=== PATIENT | male | born 1935 | race Caucasian/White ===

== ENCOUNTER 2023-06-14 17:01 | Inpatient (IN) ==
[2023-06-14] MEDS ORDERED: IOPAMIDOL 100 ML BOTTLE IV ONE (17:02)
[2023-06-14 17:44] LABS: Basophils # (Auto) 0.04 K/mcL (0.00-0.30); Basophils % (Auto) 0.4 % (0.0-2.0); Eosinophils # (Auto) 0.31 K/mcL (0.00-0.70); Eosinophils % (Auto) 3.1 % (0.0-7.0); Hematocrit 42.6 % (40.1-51.0); Lymphocytes # (Auto) 2.59 K/mcL (1.50-4.80); Lymphocytes % (Auto) 25.5 % (15.5-49.0); Mean Cell Volume 91.6 fL (80.0-100.0); Mean Corpuscular HGB Conc 30.5 g/dL (31.0-36.0); Mean Platelet Volume 8.9 fL (8.8-12.5); Monocytes # (Auto) 0.83 K/mcL (0.10-0.90); Monocytes % (Auto) 8.2 % (1.0-12.0); Neutrophils % (Auto) 62.6 % (38.0-78.0); Platelet Count 347 K/mcL (140-440); RBC 4.65 M/mcL (4.63-6.08); Red Cell Distribution Width 15.5 % (11.5-14.5); WBC 10.2 K/mcL (4.5-11.0)
[2023-06-14 18:12] LABS: ALT/SGPT 5 U/L (<40); AST/SGOT 20 U/L (<40); Albumin 3.8 gm/dL (3.2-5.2); Albumin/Globulin Ratio 1.2 (1.0-2.3); Alkaline Phosphatase 130 U/L (39-117); Bilirubin,Total 2.3 mg/dL (0.1-1.0); Blood Urea Nitrogen 29 mg/dL (8-23); Calcium 9.7 mg/dL (8.6-10.4); Carbon Dioxide 23 mmol/L (22-30); Chloride 102 mmol/L (96-108); Globulin 3.1 gm/dL (2.2-3.7); Glomerular Filtration Rate 44; Glucose 106 mg/dL (70-105)
[2023-06-14 18:32] LABS: INR 1.1 (0.9-1.1); Prothrombin Time 15.1 sec (11.9-14.5)
[2023-06-14] MEDS: FUROSEMIDE 40 MG/4 ML VIAL IV ONE (19:18)
[2023-06-14] MEDS ORDERED: POTASSIUM CHLORIDE 20 MEQ TABLET PO PRN ×2 (22:12)
[2023-06-14] MEDS ORDERED: IPRATROPIUM/ALBUTEROL 3 ML AMPUL.NEB NEB PRN (22:12)
[2023-06-14] MEDS ORDERED: ONDANSETRON 4 MG/2 ML VIAL IV PRN (22:12)
[2023-06-14] MEDS ORDERED: hydrALAZINE 20 MG/ML VIAL IV PRN (22:12)
[2023-06-14] MEDS ORDERED: POLYETHYLENE GLYCOL 3350 17 GM PACKET PO PRN (22:12)
[2023-06-14] MEDS ORDERED: METOPROLOL TARTRATE 5 MG/5 ML VIAL IV PRN (22:12)
[2023-06-14] MEDS ORDERED: SENNOSIDES 1 TABLET PO PRN (22:12)
[2023-06-14] MEDS ORDERED: MAGNESIUM SULFATE 2 GM/50 ML BAG IV PRN (22:12)
[2023-06-14] MEDS ORDERED: ACETAMINOPHEN 325 MG TABLET PO PRN (22:12)
[2023-06-14] MEDS ORDERED: POTASSIUM CHLORIDE 40 MEQ in DEXTROSE 5% IN WATER 500 ML IV PRN (22:12)
[2023-06-14] MEDS: 0.9 % SODIUM CHLORIDE 10 ML SYRINGE IV SCH (22:25)
[2023-06-15 06:03] LABS: Basophils # (Auto) 0.02 K/mcL (0.00-0.30); Basophils % (Auto) 0.3 % (0.0-2.0); Eosinophils # (Auto) 0.26 K/mcL (0.00-0.70); Eosinophils % (Auto) 3.3 % (0.0-7.0); Hematocrit 39.6 % (40.1-51.0); Hemoglobin 12.2 g/dL (13.7-17.5); Lymphocytes # (Auto) 1.47 K/mcL (1.50-4.80); Lymphocytes % (Auto) 18.9 % (15.5-49.0); Mean Cell Volume 92.3 fL (80.0-100.0); Mean Corpuscular HGB Conc 30.8 g/dL (31.0-36.0); Mean Platelet Volume 8.8 fL (8.8-12.5); Monocytes # (Auto) 0.63 K/mcL (0.10-0.90); Monocytes % (Auto) 8.1 % (1.0-12.0); Neutrophils % (Auto) 69.3 % (38.0-78.0); Platelet Count 313 K/mcL (140-440); RBC 4.29 M/mcL (4.63-6.08); Red Cell Distribution Width 15.5 % (11.5-14.5); WBC 7.8 K/mcL (4.5-11.0)
[2023-06-15 07:04] LABS: ALT/SGPT < 5 U/L (<40); AST/SGOT 19 U/L (<40); Albumin 3.7 gm/dL (3.2-5.2); Albumin/Globulin Ratio 1.3 (1.0-2.3); Alkaline Phosphatase 117 U/L (39-117); Bilirubin,Direct 0.4 mg/dL (<0.3); Bilirubin,Total 2.5 mg/dL (0.1-1.0); Blood Urea Nitrogen 25 mg/dL (8-23); Calcium 9.2 mg/dL (8.6-10.4); Carbon Dioxide 23 mmol/L (22-30); Chloride 104 mmol/L (96-108); Globulin 2.9 gm/dL (2.2-3.7); Glomerular Filtration Rate 54; Glucose 94 mg/dL (70-105); Lactate Dehydrogenase 166 U/L (135-225); Phosphorous 3.8 mg/dL (2.5-4.5); Triglycerides 103 mg/dL (<150); Uric Acid 8.2 mg/dL (2.5-8.0)
[2023-06-15] MEDS: PANTOPRAZOLE 40 MG TABLET PO SCH (07:16)
[2023-06-15] MEDS: METOLAZONE 2.5 MG TABLET PO ONE (08:15)
[2023-06-15] MEDS: METOPROLOL SUCCINATE 50 MG TAB.XL.24H PO SCH (08:16)
[2023-06-15] MEDS: APIXABAN 2.5 MG TABLET PO SCH (08:16)
[2023-06-15] MEDS: DOCUSATE SODIUM 100 MG CAPSULE PO SCH (08:17)
[2023-06-15] MEDS: amLODIPine 5 MG TABLET PO SCH ×2 (08:18→08:45)
[2023-06-15] MEDS: FUROSEMIDE 20 MG TABLET PO SCH (08:39)
[2023-06-15] MEDS: FUROSEMIDE 40 MG/4 ML VIAL IV ONE (08:39)
[2023-06-15] MEDS ORDERED: METOPROLOL SUCCINATE 50 MG TAB.XL.24H PO SCH (09:00)
[2023-06-15] MEDS: ATORVASTATIN 40 MG TABLET PO SCH (15:45)
[2023-06-15] MEDS: CITALOPRAM 20 MG TABLET PO SCH (15:56)
[2023-06-15] MEDS: LEVOTHYROXINE 25 MCG TABLET PO ONE (15:57)
[2023-06-15] MEDS: ROSUVASTATIN 20 MG TABLET PO SCH (20:32)
[2023-06-16 07:00] LABS: ALT/SGPT 6 U/L (<40); AST/SGOT 23 U/L (<40); Albumin 4.1 gm/dL (3.2-5.2); Albumin/Globulin Ratio 1.2 (1.0-2.3); Alkaline Phosphatase 128 U/L (39-117); Bilirubin,Direct 0.5 mg/dL (<0.3); Bilirubin,Total 2.8 mg/dL (0.1-1.0); Blood Urea Nitrogen 40 mg/dL (8-23); Calcium 10.3 mg/dL (8.6-10.4); Carbon Dioxide 28 mmol/L (22-30); Chloride 95 mmol/L (96-108); Globulin 3.3 gm/dL (2.2-3.7); Glomerular Filtration Rate 31; Glucose 101 mg/dL (70-105); Lactate Dehydrogenase 185 U/L (135-225); Phosphorous 4.9 mg/dL (2.5-4.5); Triglycerides 108 mg/dL (<150); Uric Acid 10.6 mg/dL (2.5-8.0)
[2023-06-16] MEDS: LEVOTHYROXINE 25 MCG TABLET PO SCH (07:29)
[2023-06-16] MEDS: IPRATROPIUM/ALBUTEROL 3 ML AMPUL.NEB NEB ONE (08:50)
[2023-06-16] MEDS: IPRATROPIUM/ALBUTEROL 3 ML AMPUL.NEB NEB SCH (11:33)
[2023-06-17 06:57] LABS: ALT/SGPT 6 U/L (<40); AST/SGOT 27 U/L (<40); Albumin 3.9 gm/dL (3.2-5.2); Albumin/Globulin Ratio 1.2 (1.0-2.3); Alkaline Phosphatase 121 U/L (39-117); Bilirubin,Direct 0.5 mg/dL (<0.3); Bilirubin,Total 2.4 mg/dL (0.1-1.0); Blood Urea Nitrogen 44 mg/dL (8-23); Carbon Dioxide 26 mmol/L (22-30); Chloride 94 mmol/L (96-108); Globulin 3.3 gm/dL (2.2-3.7); Glomerular Filtration Rate 33; Glucose 113 mg/dL (70-105); Lactate Dehydrogenase 223 U/L (135-225); Phosphorous 4.9 mg/dL (2.5-4.5); Triglycerides 118 mg/dL (<150); Uric Acid 11.1 mg/dL (2.5-8.0)
[2023-06-17 13:44] LABS: ALT/SGPT 8 U/L (<40); AST/SGOT 26 U/L (<40); Albumin/Globulin Ratio 1.2 (1.0-2.3); Alkaline Phosphatase 128 U/L (39-117); Bilirubin,Direct 0.5 mg/dL (<0.3); Bilirubin,Total 2.4 mg/dL (0.1-1.0); Blood Urea Nitrogen 46 mg/dL (8-23); Calcium 10.2 mg/dL (8.6-10.4); Carbon Dioxide 30 mmol/L (22-30); Chloride 94 mmol/L (96-108); Globulin 3.3 gm/dL (2.2-3.7); Glomerular Filtration Rate 33; Glucose 111 mg/dL (70-105); Lactate Dehydrogenase 174 U/L (135-225); Phosphorous 4.5 mg/dL (2.5-4.5); Triglycerides 145 mg/dL (<150); Uric Acid 11.5 mg/dL (2.5-8.0)
[2023-06-18 06:53] LABS: ALT/SGPT 5 U/L (<40); AST/SGOT 25 U/L (<40); Albumin 3.8 gm/dL (3.2-5.2); Albumin/Globulin Ratio 1.2 (1.0-2.3); Alkaline Phosphatase 117 U/L (39-117); Bilirubin,Direct 0.5 mg/dL (<0.3); Bilirubin,Total 2.3 mg/dL (0.1-1.0); Blood Urea Nitrogen 49 mg/dL (8-23); Carbon Dioxide 27 mmol/L (22-30); Chloride 97 mmol/L (96-108); Globulin 3.2 gm/dL (2.2-3.7); Glomerular Filtration Rate 35; Glucose 100 mg/dL (70-105); Lactate Dehydrogenase 170 U/L (135-225); Triglycerides 125 mg/dL (<150); Uric Acid 12.3 mg/dL (2.5-8.0)
== END 2023-06-18 11:10 | disposition home or self-care (01) | DRG 189 ==
LOC: ED 17:01 → ICU 22:03 → MEDSUR 06-15 14:33
PROVIDERS: ADMIT Internal Medicine; ATTEND Internal Medicine